=== PATIENT | female | born 1955 | race Caucasian/White ===

== ENCOUNTER → 2017-05-05 | Outpatient (CLI) | payer MEDICARE, OTHER ==
[~2017-05-05] MED LIST: BUPIVACAINE MPF 0.25% 10 ML VIAL. ONE; CIPR250T30 PO; DEXT30CA6 PO; DICY20TA3 PO; DIPH1TAB PO; ESOM40CA PO; ESTR1.25 PO; FENO135C PO; FENT1SPR SL; FLUT1DIS IH; IBUP800T19 PO; LEVALBUTER1.25 MG/3 IH; LIDOCAINE 1% PF 30 ML VIAL. ONE; LORA1TAB PO; METH10TA2 PO; METO10TA81 PO; MOME13HF2 IH; NEBI5TAB2 PO; TIOT18CA IH; TIZA6CAP PO; ZOLP12.52 PO; methylPREDNISolone ACETATE 40 MG/ML VIAL. ONE
== END | disposition home or self-care (01) ==
LOC: SURG 13:44
PROVIDERS: ATTEND Anesthesiology
DX: M17.0 Bilateral primary osteoarthritis of knee (principal); I10 Essential (primary) hypertension
CPT/HCPCS: 20610; 77002; J1030; J2001; J3490

== ENCOUNTER → 2017-07-28 | Outpatient (CLI) | payer MEDICARE, OTHER ==
[~2017-07-28] MED LIST changes: -BUPIVACAINE MPF 0.25% 10 ML VIAL. ONE; -LIDOCAINE 1% PF 30 ML VIAL. ONE; -methylPREDNISolone ACETATE 40 MG/ML VIAL. ONE
== END | disposition home or self-care (01) ==
LOC: SURG 14:17
PROVIDERS: ATTEND Anesthesiology
DX: M47.816 Spondylosis without myelopathy or radiculopathy, lumbar region (principal); M17.0 Bilateral primary osteoarthritis of knee; G89.4 Chronic pain syndrome; I10 Essential (primary) hypertension; R01.1 Cardiac murmur, unspecified; F11.20 Opioid dependence, uncomplicated
CPT/HCPCS: 99214